=== PATIENT | female | born 1965 ===

== ENCOUNTER 2020-10-19 07:28 | Day surgery (SDC) | payer OTHER ==
[~2020-10-19 07:28] MED LIST: ANASTROZOLE1 MG PO; MULTIPLE VITAM1 EAC2 PO; PAXIL20 MG PO
[2020-10-19] MEDS ORDERED: PERCOCET 5-3251 EACH PO (12:59)
== END 2020-10-19 17:55 | disposition home or self-care (01) ==
LOC: CIR.AMB 07:28
PROVIDERS: ATTEND Surgery
DX: E04.2 Nontoxic multinodular goiter (principal); Z20.822 Contact with and (suspected) exposure to COVID-19